=== PATIENT | female | born 1970 | race Caucasian/White ===

== ENCOUNTER 2017-10-18 00:15 | Inpatient (IN) | payer OTHER ==
--- NOTE | 2017-10-18 00:26 | EDPHY ---
H & P Stated Complaint: RLQ pain, Time Seen by Provider: 10/18/17 00:26 HPI/ROS: HPI CHIEF COMPLAINT: Abdominal pain, right lower quadrant HISTORY OF PRESENT ILLNESS: Patient is a 46-year-old female she is otherwise healthy without any significant medical history she has had a before but otherwise no abdominal surgeries, she presents emergency room with right lower quadrant abdominal pain. Patient reports to me that on Wednesday she developed some generalized abdominal pain or abdominal discomfort very mild it persisted through Wednesday and then today. She noticed while running today she continued to have pain. Pain is located right lower quadrant. She has had no nausea or fever. Denies diarrhea. She did have a decreased appetite. She denies any chest pain or pleuritic pain. Denies shortness of breath. Pain is located 6/10 right lower quadrant. Past Medical History: Denies medical history Past Surgical History: Social History: Denies drugs alcohol tobacco. Family History: Noncontributory ROS REVIEW OF SYSTEMS: A comprehensive 10 point review of systems is otherwise negative aside from elements mentioned in the history of present illness. Exam Constitutional appears well nontoxic no acute distress, triage nursing summary reviewed, vital signs reviewed, awake/alert. Eyes normal conjunctivae and sclera, EOMI, PERRLA. HENT normal inspection, atraumatic, moist mucus membranes, no epistaxis, neck supple/ no meningismus, no raccoon eyes. Respiratory clear to auscultation bilaterally, normal breath sounds, no respiratory distress, no wheezing. Cardiovascular rate normal, regular rhythm, no murmur, no edema, distal pulses normal. Gastrointestinal mild tender palpation right lower quadrant, no rebound, no guarding, normal bowel sounds, no distension, no pulsatile mass. Genitourinary no CVA tenderness. Musculoskeletal no midline vertebral tenderness, full range of motion, no calf swelling, no tenderness of extremities, no meningismus, good pulses, neurovascularly intact. Skin pink, warm, & dry, no rash, skin atraumatic. Neurologic awake, alert and oriented x 3, AAOx3, moves all 4 extremities equally, motor intact, sensory intact, CN II-XII intact, normal cerebellar, normal vision, normal speech. Psychiatric normal mood/affect. Heme/Lymph/Immune no lymphadenopathy. Differential diagnosis includes but is not limited to and in no particular order : Bowel obstruction, appendicitis, gallbladder disease, diverticulitis, colitis , enteritis, perforated viscus, gastritis, GERD, esophagitis, urinary tract infection, pyelonephritis, kidney stones Medical Decision Making: Plan for this patient IV establishment IV fluid bolus 1 L normal saline, IV Dilaudid for pain control IV Zofran nausea, check basic blood work, test, urinalysis, CT scan abdomen pelvis with IV contrast rule out acute appendicitis. It appendix is normal may need to further evaluate right ovary. Re-evaluation: CT scan abdomen pelvis with IV contrast: This shows acute appendicitis. Called to me by Dr. Prieto. Updated patient about appendicitis on CT. IV Invanz ordered. Patient agrees for admission. And surgeries been consult. 0258: Dr. Benjamin has been consulted for Acute Appy. Source: Patient - Personal History LMP (Females 10-55): 22-28 Days Ago Current Tetanus/Diphtheria Vaccine: Yes - Medical/Surgical History Hx Asthma: No Hx Chronic Respiratory Disease: No Hx Diabetes: No Hx Cardiac Disease: No Hx Renal Disease: No Hx Cirrhosis: No Hx Alcoholism: No Hx HIV/AIDS: No Hx Splenectomy or Spleen Trauma: No Other PMH: c-sec, knee surgeries - Social History Smoking Status: Never smoked Constitutional: Initial Vital Signs Temperature (C) 36.5 C 10/18/17 00:18 Heart Rate 70 10/18/17 00:18 Respiratory Rate 16 10/18/17 00:18 Blood Pressure 117/72 10/18/17 00:18 O2 Sat (%) 96 10/18/17 00:18 O2 Delivery Mode Nasal Cannula O2 (L/minute) 2 Allergies/Adverse Reactions: No Known Allergies Allergy (Verified 10/18/17 00:20) Home Medications: Medication Instructions Recorded NK [No Known Home Meds] 09/02/14 Medical Decision Making - Data Points Laboratory Results: Laboratory Results 10/18/17 00:48 10/18/17 00:48 10/18/17 10/18/17 10/18/17 00:48 00:48 00:48 WBC RBC Hgb Hct MCV MCH MCHC RDW Plt Count MPV Neut % (Auto) Lymph % (Auto) Jasper % (Auto) Eos % (Auto) Baso % (Auto) Nucleat RBC Rel Count Absolute Neuts (auto) Absolute Lymphs (auto) Absolute Monos (auto) Absolute Eos (auto) Absolute Basos (auto) Absolute Nucleated RBC Immature Gran % Immature Gran # PT 12.7 SEC SEC (12.0-15.0) INR 0.93 (0.83-1.16) APTT 25.8 SEC SEC (23.0-38.0) Sodium 145 mEq/L mEq/L (135-145) Potassium 3.9 mEq/L mEq/L (3.5-5.2) Chloride 106 mEq/L mEq/L (97-110) Carbon Dioxide 26 mEq/l mEq/l (22-31) Anion Gap 13 mEq/L mEq/L (8-16) BUN 21 mg/dL mg/dL (7-23) Creatinine 0.8 mg/dL mg/dL (0.6-1.0) Estimated GFR > 60 Glucose 88 mg/dL mg/dL (70-100) Calcium 9.4 mg/dL mg/dL (8.5-10.4) Total Bilirubin 0.3 mg/dL mg/dL (0.1-1.4) Conjugated Bilirubin 0.2 mg/dL mg/dL (0.0-0.5) Unconjugated Bilirubin 0.1 mg/dL mg/dL (0.0-1.1) AST 36 IU/L IU/L (14-46) ALT 31 IU/L IU/L (9-52) Alkaline Phosphatase 54 IU/L IU/L (38-126) Total Protein 7.8 g/dL g/dL (6.3-8.2) Albumin 4.4 g/dL g/dL (3.5-5.0) Lipase 265 IU/L IU/L (23-300) Beta HCG, Qual NEGATIVE 10/18/17 00:48 WBC 9.68 10^3/uL H 10^3/uL (3.80-9.50) RBC 4.57 10^6/uL 10^6/uL (4.18-5.33) Hgb 13.8 g/dL g/dL (12.6-16.3) Hct 40.8 % % (38.0-47.0) MCV 89.3 fL fL (81.5-99.8) MCH 30.2 pg pg (27.9-34.1) MCHC 33.8 g/dL g/dL (32.4-36.7) RDW 13.1 % % (11.5-15.2) Plt Count 226 10^3/uL 10^3/uL (150-400) MPV 9.5 fL fL (8.7-11.7) Neut % (Auto) 72.4 % % (39.3-74.2) Lymph % (Auto) 19.3 % % (15.0-45.0) Jasper % (Auto) 6.1 % % (4.5-13.0) Eos % (Auto) 1.4 % % (0.6-7.6) Baso % (Auto) 0.5 % % (0.3-1.7) Nucleat RBC Rel Count 0.0 % % (0.0-0.2) Absolute Neuts (auto) 7.00 10^3/uL H 10^3/uL (1.70-6.50) Absolute Lymphs (auto) 1.87 10^3/uL 10^3/uL (1.00-3.00) Absolute Monos (auto) 0.59 10^3/uL 10^3/uL (0.30-0.80) Absolute Eos (auto) 0.14 10^3/uL 10^3/uL (0.03-0.40) Absolute Basos (auto) 0.05 10^3/uL 10^3/uL (0.02-0.10) Absolute Nucleated RBC 0.00 10^3/uL 10^3/uL (0-0.01) Immature Gran % 0.3 % % (0.0-1.1) Immature Gran # 0.03 10^3/uL 10^3/uL (0.00-0.10) PT INR APTT Sodium Potassium Chloride Carbon Dioxide Anion Gap BUN Creatinine Estimated GFR Glucose Calcium Total Bilirubin Conjugated Bilirubin Unconjugated Bilirubin AST ALT Alkaline Phosphatase Total Protein Albumin Lipase Beta HCG, Qual Medications Given: Discontinued Medications Ertapenem (Invanz) 1 gm IV EDNOW ONE PRN Reason: Protocol Stop: 10/18/17 02:29 Last Admin: 10/18/17 02:57 Dose: 1 gm Hydromorphone HCl (Dilaudid) 0.5 mg IVP EDNOW ONE Stop: 10/18/17 00:42 Last Admin: 10/18/17 01:17 Dose: 0.5 mg Sodium Chloride (Ns) 1,000 mls @ 0 mls/hr IV EDNOW ONE; Wide Open PRN Reason: Protocol Stop: 10/18/17 00:32 Last Admin: 10/18/17 00:45 Dose: 1,000 mls Ondansetron HCl (Zofran) 4 mg IVP EDNOW ONE Stop: 10/18/17 00:43 Last Admin: 10/18/17 01:17 Dose: 4 mg Departure - Departure Disposition: [facility] Inpatient Acute Clinical Impression: Acute appendicitis Qualifiers: Acute appendicitis type: with localized peritonitis Qualified Code(s): K35.3 - Acute appendicitis with localized peritonitis Condition: Fair
[2017-10-18] MEDS ORDERED: NS 1,000 ML IV ONE (00:31)
[2017-10-18] MEDS ORDERED: HYDROmorphONE/DILAUDID 2 MG/ML INJ IVP ONE (00:41)
[2017-10-18] MEDS ORDERED: ONDANSETRON 4 MG/2 ML VIAL IVP ONE (00:42)
[2017-10-18 00:58] LABS: PLATELET COUNT 226 10^3/uL (150-400)
[2017-10-18 01:06] LABS: INR 0.93 (0.83-1.16); PROTIME(PATIENT) 12.7 SEC (12.0-15.0)
[2017-10-18] MEDS ORDERED: ERTAPENEM 1 GM VIAL IV ONE (02:28)
--- NOTE | 2017-10-18 03:55 | GHP ---
[f rep st] HISTORY AND PHYSICAL DATE OF ADMISSION: 10/18/2017 CHIEF COMPLAINT: Acute appendicitis. HISTORY OF PRESENT ILLNESS: The patient is a 46-year-old woman, who started having abdominal pain on Wednesday. The abdominal pain persisted through the weekend. She is training for a 100-mile run and c ontinued to have pain. It localized to the right lower quadrant. She presented to the ER and had a CT scan performed of her abdomen and pelvis. The CT scan showed acute appendicitis. PAST MEDICAL HISTORY: None. PAST SURGICAL HISTORY: . 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 She denies tobacco use. FAMILY HISTORY: Noncontributory. REVIEW OF SYSTEMS: 10-point review of systems negative except per HPI. PHYSICAL EXAMINATION: VITAL SIGNS: 37, 61, 110/67, 16, 96% on 2 L. GENERAL: Pleasant, well-nouris hed, well-groomed woman, lying on gurney. at bedside. HEENT: Normocephalic. No gross hear ing deficits. Mucous membranes moist. Pupils equal and round. No scleral icterus. LUNGS: Clear t o auscultation bilaterally. No increased work of breathing. CARDIAC: Regular rate. ABDOMEN: Gregory l sounds present. She is soft. She is tender in the right lower quadrant. She has a positive Rovsi ng sign. SKIN: Warm and dry. PSYCH: Mood and affect normal. NEURO: Grossly intact. LABORATORY DATA: Results reviewed. I personally reviewed the results of her CT scan. See the acute appendicitis. Her white count is slightly elevated at 9.68. IMPRESSION AND PLAN: The patient is a 46-year-old woman with acute appendicitis. I will take her to the operating room for a laparoscopic appendectomy. The risks and benefits, including, but not limi cristobal to, stroke, heart attack, , blood clots, infection, bleeding, damage to surrounding structur es were all discussed. She had her questions answered to her satisfaction and signed the informed co nsent. She has received Invanz in the emergency room. /[id number]/MODL
[2017-10-18] MEDS ORDERED: BUPIVACAINE 0.25% 30 ML SDV ONE (04:16)
[2017-10-18] MEDS ORDERED: fentaNYL 100 MCG/2 ML INJ ONE ×2 (04:56→04:57)
[2017-10-18] MEDS ORDERED: PROPOFOL 200 MG/20 ML VIAL ONE (04:57)
[2017-10-18] MEDS ORDERED: MIDAZOLAM 2 MG/2 ML VIAL ONE (04:57)
[2017-10-18] MEDS ORDERED: METOCLOPRAMIDE 10 MG/2 ML VIAL ONE (04:58)
[2017-10-18] MEDS ORDERED: DEXAMETHASONE 4 MG/ML VIAL ONE (04:58)
--- NOTE | 2017-10-18 04:58 | PDANEPAE ---
ANE Past Medical History - Pulmonary History Hx Oxygen in Use at Home: No Hx Sleep Apnea: No - Endocrine History Hx Diabetes: No ANE Review of Systems Review of Systems: ANE Patient History - Allergies Allergies/Adverse Reactions: No Known Allergies Allergy (Verified 10/18/17 00:20) - Home Medications Home Medications: NK [No Known Home Meds] 09/02/14 [Last Taken Unknown] - NPO status NPO Since - Liquids (Date): 10/17/17 NPO Since - Liquids (Time): 23:45 NPO Since - Solids (Date): 10/17/17 NPO Since - Solids (Time): 20:15 - Smoking Hx Smoking Status: Never smoked ANE Labs/Vital Signs - Labs Result Diagrams: 10/18/17 00:48 10/18/17 00:48 - Vital Signs Blood Pressure: 109/73 Heart Rate: 54 Respiratory Rate: 16 O2 Sat (%): 94 Height: 160.02 cm Weight: 55.792 kg ANE Physical Exam - Airway Neck exam: FROM Mallampati Score: Class 2 Mouth exam: normal dental/mouth exam - Pulmonary Pulmonary: no respiratory distress - Cardiovascular Cardiovascular: regular rate and rhythym - ASA Status ASA Status: I, E ANE Anesthesia Plan Anesthesia Plan: general endotracheal anesthesia
[2017-10-18] MEDS ORDERED: ROCURONIUM 50 MG/5 ML VIAL ONE (04:59)
[2017-10-18] MEDS ORDERED: LIDOCAINE 2% 100 MG/5 ML SYR ONE (04:59)
--- NOTE | 2017-10-18 05:13 | POSTOPPROG ---
Post Op Note Date of Operation: 10/18/17 Surgeon: Kathy Benjamin Anesthesiologist: wilton Anesthesia: GET(General Endotracheal) Pre-op Diagnosis: acute appendicitis Post-op Diagnosis: same Indication: 46 year old with acute appendicitis Procedure: lap appy Findings: inflamed appendix Inf/Abcess present in the surg proc area at time of surgery?: No EBL: Minimal Specimen(s): appendix
[2017-10-18] MEDS ORDERED: KETOROLAC 30 MG/1 ML SDV ONE (05:42)
[2017-10-18] MEDS ORDERED: NEOSTIGMINE METHYLSULFATE 3 MG/3 ML SYR ONE (05:42)
[2017-10-18] MEDS ORDERED: fentaNYL 100 MCG/2 ML INJ IVP PRN (06:09)
[2017-10-18] MEDS ORDERED: HYDROmorphONE/DILAUDID 2 MG/ML INJ IVP PRN (06:09)
[2017-10-18] MEDS ORDERED: ALBUTEROL 3 ML DEYVIAL IH PRN (06:09)
[2017-10-18] MEDS ORDERED: HYDROCODONE/APAP 5/325 TAB PO PRN (06:09)
[2017-10-18] MEDS ORDERED: MEPERIDINE 25 MG/ML SYR IVP PRN (06:09)
[2017-10-18] MEDS ORDERED: NALOXONE HCL 0.4 MG/ML INJ IVP PRN (06:09)
[2017-10-18] MEDS ORDERED: OXYCODONE/APAP 5/325 TAB PO PRN (06:09)
[2017-10-18] MEDS ORDERED: ONDANSETRON 4 MG/2 ML VIAL IVP PRN (06:09)
[2017-10-18] MEDS ORDERED: ACETAMINOPHEN 500 MG TAB PO PRN (06:09)
--- NOTE | 2017-10-18 06:10 | POSTANESTH ---
Post Anesthetic Evaluation Cardiovascular Status: Similar to Pre-Op Cond Respiratory Status: Similar to Pre-op Cond. Level of Consciousness/Mental Status: Mildly Sleepy, Arousable Pain Control: Adequate, Prn Tx Ordered Nausea/Vomiting Control: Adequate, Prn Tx Ordered Complications Possibly Related to Anesthesia: None Noted
--- NOTE | 2017-10-18 06:15 | GOP ---
[f rep st] OPERATIVE REPORT DATE OF OPERATION: 10/18/2017 SURGEON: Kathy Benjamin MD ANESTHESIA: General. ANESTHESIOLOGIST: Ahsan Mac MD PREOPERATIVE DIAGNOSIS: Acute appendicitis. POSTOPERATIVE DIAGNOSIS: Acute appendicitis. PROCEDURE PERFORMED: Laparoscopic appendectomy. FINDINGS: Very inflamed appendix with thickened mesentery. SPECIMENS: Appendix. ESTIMATED BLOOD LOSS: 10 cc. INDICATIONS: The patient is a 46-year-old woman who presented with 48 hours of abdominal pain. CT s can confirmed appendicitis. DESCRIPTION OF PROCEDURE: Patient was brought into the operating room, placed supine on the table, a nd general anesthesia was administered. Her abdomen was prepped and draped in the usual sterile fash ion. I infiltrated all sites with 0.5% Marcaine prior to making incisions. I elevated her umbilicus and made a small incision. I inserted the Veress needle. It passed the hanging drop test. Her abd omen insufflated easily to a pressure of 15 mmHg. I placed a 5 mm trocar with a camera at this site. There were no injuries from Veress needle placement. Under direct vision I placed a 5 mm suprapubi c trocar and a 10 mm trocar in the left lower quadrant. I explored her abdomen. Her appendix was in flamed. There were no other abnormalities noted. I gently dissected the appendix away from the side wall. I lifted it and divided the mesoappendix with the Harmonic Scalpel. It was thicker than usual . I used the Endo HEIDI 45 white load to divide the base of the appendix. I placed the appendix in an EndoCatch bag and retrieved it via the 10 mm trocar. Hemostasis was achieved at the staple line. I examined her abdomen no injuries noted. The ports were removed under direct vision. The abdomen al lowed to desufflate. I closed the fascia at the 10 mm trocar site with 0 Vicryl. I closed the skin with 4-0 Monocryl. Dermabond applied. She was awakened in the operating room, extubated, transferre d to PACU in stable condition. /[id number]/MODL
[2017-10-18 07:01] VITALS: PULSE 52; TEMP 97.3
[2017-10-18 08:20] VITALS: BP 106/70; RESP 12; O2SAT 91
== END 2017-10-18 08:39 | disposition home or self-care (01) | DRG 343 ==
PROVIDERS: ADMIT Surgery; ATTEND Surgery
PROC: 0DTJ4ZZ Resection of Appendix, Percutaneous Endoscopic Approach (ICD-10-PCS; principal; 2017-10-18 04:30)
DX: K35.80 Unspecified acute appendicitis (principal)
CPT/HCPCS: 96374; J1100; J1170; J1335; J1885; J2001; J2250; J2405; J2704; J2710; J2765; J3010